=== PATIENT | male | born 1935 | race Caucasian/White ===

== ENCOUNTER 2016-07-25 07:54 | Outpatient (CLI) | payer MEDICARE, BC ==
[~2016-07-25 07:54] MED LIST: ASPI81TA2 PO; ATOR20TA PO; TAMS0.4C34 PO; amoxicillin PO
== END 2016-07-25 23:59 | disposition home or self-care (01) ==
LOC: RAD 07:54
PROVIDERS: ATTEND Internal Medicine Hematology & Oncology
DX: C90.00 Multiple myeloma not having achieved remission (principal); S22.43XD Multiple fractures of ribs, bilateral, subsequent encounter for fracture with routine healing; X58.XXXD Exposure to other specified factors, subsequent encounter; M47.819 Spondylosis without myelopathy or radiculopathy, site unspecified; M25.80 Other specified joint disorders, unspecified joint
CPT/HCPCS: 77075-TC

== ENCOUNTER 2016-11-29 11:51 | Inpatient (IN) | payer MEDICARE, BC ==
[~2016-11-29] VITALS: Ht 175.3 cm; Wt 74.8 kg
--- NOTE | 2016-11-29 11:51 | NUR ---
BIB C/O GENERALIZED WEAKNESS, DISCHARGED YESTERDAY FROM [facility] for SUBARACHNOID HEMMORHAGE. PT IS AAO X4, AMBULATORY WITH CANE. RR EVEN AND UNLABORED. ASHER. AT BEDSIDE FOR EVAL. PT PLACED ON MONITOR.
[2016-11-29 12:40] LABS: BASOPHILS % (AUTO) 0.2 % (0.0-2.0); EOSINOPHILS # (AUTO) 0.2 /CMM (0.0-0.7); EOSINOPHILS % (AUTO) 2.2 % (0.0-6.0); HEMATOCRIT 34 % (39-51); HEMOGLOBIN 11.2 g/dL (13.5-17.5); LYMPHOCYTES # (AUTO) 0.5 /CMM (0.8-4.8); MEAN CORPUSCULAR HEMOGLOBIN 32 PG (26.0-33.0); MEAN CORPUSCULAR HGB CONC 33 g/dl (31.0-36.0); MEAN CORPUSCULAR VOLUME 96 fL (80-96); NEUTROPHILS # (AUTO) 5.3 /CMM (1.8-8.9); NEUTROPHILS % (AUTO) 75.6 % (43.0-81.0); PLATELET COUNT (AUTO) 83 /CMM (150-450); RDW COEFFICIENT OF VARIATION 15.4 (11.5-15.0); RED BLOOD CELL COUNT(AUTO) 3.53 MIL/uL (4.5-6.0)
[2016-11-29 12:50] LABS: CALCIUM, SERUM 8.3 mg/dL (8.5-10.1); CARBON DIOXIDE 25 mmol/L (21-32); CHLORIDE 108 mmol/L (98-107); GLUCOSE 100 mg/dL (74-106); POTASSIUM 4.2 mmol/L (3.5-5.1); SODIUM SERUM 141 mmol/L (136-145); UREA NITROGEN, BLOOD 14 mg/dL (7-18)
[2016-11-29 12:53] LABS: INR 1.02 (0.87-1.13); PROTHROMBIN TIME 10.6 SECS (9.5-12.7)
[2016-11-29 12:57] LABS: TROPONIN I 0.155 ng/mL (0.00-0.056)
[2016-11-29 13:07] LABS: ALANINE AMINOTRANSFERASE 45 U/L (12-78); ALBUMIN 2.9 g/dL (3.4-5.0); ALKALINE PHOSPHATASE 69 U/L (46-116); ASPARTATE AMINOTRANSFERASE 33 U/L (15-37); BILIRUBIN,DIRECT 0.2 mg/dL (0.0-0.2); BILIRUBIN,TOTAL 0.9 mg/dL (0.2-1.0); TOTAL PROTEIN, SERUM 6.1 g/dL (6.4-8.2)
--- NOTE | 2016-11-29 13:21 | NUR ---
URINE OBTAINED SENT TO LAB
[2016-11-29 13:53] LABS: APPEARANCE,URINE Clear (CLEAR); BILIRUBIN,URINE Negative (NEGATIVE); BLOOD, URINE Negative Ery/uL (NEGATIVE); COLOR,URINE Light yellow (YELLOW); KETONES,URINE Negative (NEGATIVE); LEUKOCYTE ESTERASE ,URINE Negative (NEGATIVE); NITRITE, URINE Negative (NEGATIVE); PROTEIN,URINE Negative (NEGATIVE); UGLUCOSE Negative (NEGATIVE)
[2016-11-29 14:02] LABS: BACTERIA,URINE None seen /HPF (None Seen); RBC,URINE 0-3 /HPF (0-2); SQUAMOUS EPITHELIAL CELL,UR Few /HPF (None Seen); WBC,URINE 0-3 /HPF (0-3)
--- NOTE | 2016-11-29 14:09 | NUR ---
CALLED [facility] ANDONIAN
--- NOTE | 2016-11-29 14:30 | NUR ---
ROYAL 114-1
[2016-11-29] MEDS ORDERED: LENA15CA PO (14:32)
[2016-11-29] MEDS ORDERED: CYAN10009 PO (14:32)
[2016-11-29] MEDS ORDERED: CALC-866 PO (14:32)
[2016-11-29] MEDS ORDERED: LEVE500T20 PO (14:32)
[2016-11-29] MEDS ORDERED: ACYC400T PO (14:32)
--- NOTE | 2016-11-29 14:56 | NUR ---
REPORT GIVEN TO COSMO ARMENDARIZ FOR LISY
[2016-11-29] MEDS ORDERED: CALC-897 PO (14:58)
[2016-11-29 15:17] LABS: BAND % (MANUAL) 1 % (0.0-5.0); LYMPHOCYTES % (MANUAL) 12 % (16-48); MONOCYTES % (MANUAL) 9 % (0-11.0); NEUTROPHILS % (MANUAL) 78 (42-76)
--- NOTE | 2016-11-29 16:38 | NUR ---
PAUL SCALES HYPERION ANALYST AT BEDSIDE FOR EVAL
--- NOTE | 2016-11-29 19:05 | NUR ---
DRAW FRAME OPERATOR INITIAL NOTE PT RECEIVED FROM ER IN NO ACUTE DISTRESS. ON TELE WITH SR 68. A/O X4 ABLE TO WALK TO BED WITH ASSISTANCE. 18 G IV ON RIGHT HAND THAT IS PATENT AND WILL START IV FLUIDS SOON. FAMILY WILL BE COMING TO BEDSIDE ACCORDING TO THE PATIENT. SAFETY AND COMFORT MEASURES TO BE ENSURED DURING THE SHIFT.
--- NOTE | 2016-11-29 19:46 | NUR ---
TEXTED DR. TRUJILLO FOR MRI APPROVAL,
--- NOTE | 2016-11-29 19:52 | NUR ---
MRI APPROVED, MRI WILL BE TOMORROW AM 11/30/2016.
[2016-11-29 20:00] VITALS: BP 125/71
--- NOTE | 2016-11-29 21:06 | NUR ---
RN NOTE PT HAD ORDER FOR [address]. WHEN OUT OF THE ROOM PT FAMILY GAVE HIM HIS DOSE FROM HOME SUPPLY. SO WILL HOLD.
[2016-11-30] VITALS: BP 102/53
[2016-11-30 04:00] VITALS: BP 115/64
--- NOTE | 2016-11-30 05:07 | NUR ---
RN NOTE NEW BAG OF IV NS @75CC NOT GIVEN DUE TO FIRST BAG STILL RUNNING.
--- NOTE | 2016-11-30 05:47 | NUR ---
INSPECTOR CHIEF CLOSING NOTE PT REMAINS IN NO ACUTE DISTRESS. PT HAD ADEQUATE SLEEP DURING THE SHIFT. AWAKE CURRENTLY ON PHONE AND WAS ABLE OT GO TO THE RESTROOM NEEDED. COMFORT AND SAFETY MEASURES WERE ENSURED DURING THE SHIFT.
[2016-11-30 07:01] LABS: CARBON DIOXIDE 24 mmol/L (21-32); CHLORIDE 111 mmol/L (98-107); GLUCOSE 91 mg/dL (74-106); MAGNESIUM 1.9 mg/dL (1.8-2.4); PHOSPHORUS 3.6 mg/dL (2.5-4.9); POTASSIUM 4.1 mmol/L (3.5-5.1); SODIUM SERUM 146 mmol/L (136-145); UREA NITROGEN, BLOOD 13 mg/dL (7-18)
[2016-11-30 07:02] LABS: CHOLESTEROL 122 mg/dL (<200); HDL CHOLESTEROL 68 mg/dL (40-60); LDL 44 mg/dL (0-99); TRIGLYCERIDES 75 mg/dL (30-150)
[2016-11-30 07:06] LABS: BASOPHILS % (AUTO) 0.3 % (0.0-2.0); EOSINOPHILS # (AUTO) 0.3 /CMM (0.0-0.7); EOSINOPHILS % (AUTO) 4.5 % (0.0-6.0); HEMATOCRIT 33 % (39-51); HEMOGLOBIN 10.6 g/dL (13.5-17.5); LYMPHOCYTES # (AUTO) 0.6 /CMM (0.8-4.8); LYMPHOCYTES % (AUTO) 10.1 % (20.0-44.0); MEAN CORPUSCULAR HEMOGLOBIN 31 PG (26.0-33.0); MEAN CORPUSCULAR HGB CONC 32 g/dl (31.0-36.0); MEAN CORPUSCULAR VOLUME 98 fL (80-96); MONOCYTES % (AUTO) 17.9 % (2.0-12.0); NEUTROPHILS # (AUTO) 3.7 /CMM (1.8-8.9); NEUTROPHILS % (AUTO) 67.2 % (43.0-81.0); PLATELET COUNT (AUTO) 87 /CMM (150-450); RDW COEFFICIENT OF VARIATION 16.7 (11.5-15.0); RED BLOOD CELL COUNT(AUTO) 3.39 MIL/uL (4.5-6.0); WHITE BLOOD COUNT (AUTO) 5.6 K/uL (4.3-11.0)
[2016-11-30 08:00] VITALS: BP 127/69
--- NOTE | 2016-11-30 08:16 | NUR ---
FAMILY ASSISTANT NOTE PATIENT IN BED . ALL NEEDS ATTENDED ALERT , ORIENTED X4 NO SOB NOTED , SEEN BY DR MAIN RETINA SUBSPECIALIST NOTIFIED THAT TROPONIN 0.155 OK TO ORDER ONE MORE NOW , OK TO PLACE ON MED SURGE , ON TELE MONITOR SR HR 84 , AND HAS LT UPPER CHEST HEART MONITOR IN PLACE FROM [facility] DR MAIN NOTIFIED, RT HAND HL INTACT AND PATENT , BED IN LOWEST AND LOCKED POSITION , CALL LIGHT WITHIN REACH , PLAN OF CARE DISCUSSED WITH PATIENT ,UNDERSTOOD, , STROKE SCALE DONE , AND STROKE TEACHING DONE, DR GRAF AWARE OF CT HEAD WILL CONT TO MONITOR CLOSELY
--- NOTE | 2016-11-30 09:28 | NUR ---
GARDENING MANAGER NOTE TELE REMOVED ORDERED , MRI CONSENT DONE BUT UNABLE TO GET INFORMATION ABOUT HEART MONITOR ON HIS LT CHEST , LEFT A MESSAGE WITH WILL F\U
[2016-11-30 09:44] LABS: EOSINOPHILS % (MANUAL) 5 % (0-4); LYMPHOCYTES % (MANUAL) 7 % (16-48); MONOCYTES % (MANUAL) 13 % (0-11.0); NEUTROPHILS % (MANUAL) 75 (42-76)
--- NOTE | 2016-11-30 10:26 | NUR ---
MS RN NOTE DR BUNN AT BEDSIDE AN NOTIFIED THAT DR FROM [facility] WANT TO TRANSFER TO [facility] STATED THAT WILL F\U , SPOKE WITH STATED THAT WILL GET INFORMATION ABOUT
--- NOTE | 2016-11-30 11:04 | NUR ---
MS RN NOTES SEEN BY ONCOLOGIST VITA AND NEUROLOGIST DARLYN PENDING DISCHARGE TO DIFFERENT HOSPITAL. WAITING FROM FOR HEART MONITOR PAPER WORK.
--- NOTE | 2016-11-30 12:19 | NUR ---
MS RN NOTES SPOKE TO DR. Carpio OLEOMARGARINE MAKER NOTIFIED OF TROPONIN OF 0.509 AND WITH ORDERS TO REPEAT TROPONIN IN 6HRS. AND OK TO REMOVE HEART MONITOR FOR MRI HERE. Addendum: 11/30/16 at 1324 by ELOISA ALANIS RN BACK FROM MRI SPINE WILL F\U
--- NOTE | 2016-11-30 14:19 | NUR ---
MS ARMENDARIZ NOTE WITH PT , ABLE TO WALK WELL WITH STAND BY ASSISTANCE , BACK FROM MRI ,CHICHO Vilchis\U Addendum: 11/30/16 at 1457 by ELOISA ALANIS RN REPORTED TO DR COOK MRI RESULT NO NEW ORDER GIVEN AT THIS TIME
[2016-11-30 16:00] VITALS: BP 129/71
--- NOTE | 2016-11-30 18:57 | NUR ---
MS RN NOTES ALL NEEDS ATTENDED. TROPONIN LEVEL STILL PENDING. WILL ENDORSE TO NEXT SHIFT RN TO F/U.
--- NOTE | 2016-11-30 19:05 | NUR ---
RN OPENING NOTES RECEIVED REPORT FROM AM RN. PATIENT IN BED, A/A/O X3, ABLE TO MAKE NEEDS KNOWN. BREATHING EVEN AND UNLABORED, ON ROOM AIR. DENIES SOB OR DIFFICULTY BREATHING. PULSES PRESENT. RIGHT HAND IV PATENT W/ DRESSING CDI & IVF NS @ 75 ML/HR. DENIES ANY PAIN OR DISCOMFORT @ THIS TIME. SAFETY MEASURES IN PLACE W/ SIDE RAILS UP, BED LOCKED IN LOWEST POSITION, CALL LIGHT WITHIN REACH. FAMILY @ BEDSIDE. WILL CONTINUE TO MONITOR.
[2016-11-30 20:00] VITALS: BP 121/62
--- NOTE | 2016-11-30 20:00 | NUR ---
RN NOTES RIGHT HAND IV W/ LEAKING NOTED. LINE DC'D & REPLACED W/ IV #22 ON LEFT AC. PATIENT TOLERATED WELL.
[2016-11-30 20:14] VITALS: BP 121/62
--- NOTE | 2016-11-30 20:20 | NUR ---
RN NOTES CRITICALLY HIGH TROPONIN LEVEL REPORTED TO DR DUVAL. NO NEW ORDERS RECEIVED.
[2016-12-01 04:00] VITALS: BP 114/52
--- NOTE | 2016-12-01 07:05 | NUR ---
MS RN NOTE: RECEIVED PT AWAKE IN BED, A&OX3, DENIES PAIN. ON RA, RESPIRATIONS EVEN AND UNLABORED WITH NO SOB NOTED. LAC PATENT AND INTACT WITH NS RUNNING AT 75ML/HR. BED LOW, LOCKED, X2 SIDE RAILS UP AND CALL LIGHT WITHIN REACH. WILL CONT TO MONITOR.
[2016-12-01 07:35] LABS: EOSINOPHILS # (AUTO) 0.2 /CMM (0.0-0.7); EOSINOPHILS % (AUTO) 3.4 % (0.0-6.0); HEMATOCRIT 32 % (39-51); HEMOGLOBIN 10.5 g/dL (13.5-17.5); LYMPHOCYTES # (AUTO) 0.8 /CMM (0.8-4.8); LYMPHOCYTES % (AUTO) 13.7 % (20.0-44.0); MEAN CORPUSCULAR HEMOGLOBIN 32 PG (26.0-33.0); MEAN CORPUSCULAR HGB CONC 33 g/dl (31.0-36.0); MEAN CORPUSCULAR VOLUME 97 fL (80-96); MONOCYTES # (AUTO) 1.3 /CMM (0.1-1.30); MONOCYTES % (AUTO) 21.8 % (2.0-12.0); NEUTROPHILS # (AUTO) 3.7 /CMM (1.8-8.9); NEUTROPHILS % (AUTO) 61.1 % (43.0-81.0); PLATELET COUNT (AUTO) 95 /CMM (150-450); RDW COEFFICIENT OF VARIATION 16.9 (11.5-15.0); RED BLOOD CELL COUNT(AUTO) 3.27 MIL/uL (4.5-6.0)
[2016-12-01 08:00] VITALS: BP 127/62
[2016-12-01 08:02] LABS: CALCIUM, SERUM 7.5 mg/dL (8.5-10.1); CARBON DIOXIDE 23 mmol/L (21-32); CHLORIDE 107 mmol/L (98-107); CREATININE 0.9 mg/dL (0.6-1.3); GLUCOSE 100 mg/dL (74-106); MAGNESIUM 1.7 mg/dL (1.8-2.4); PHOSPHORUS 2.9 mg/dL (2.5-4.9); POTASSIUM 3.1 mmol/L (3.5-5.1); SODIUM SERUM 141 mmol/L (136-145); UREA NITROGEN, BLOOD 17 mg/dL (7-18)
[2016-12-01 08:46] LABS: BAND % (MANUAL) 1 % (0.0-5.0); EOSINOPHILS % (MANUAL) 1 % (0-4); LYMPHOCYTES % (MANUAL) 15 % (16-48); MONOCYTES % (MANUAL) 24 % (0-11.0); NEUTROPHILS % (MANUAL) 59 (42-76)
[2016-12-01] MEDS ORDERED: METO25TA20 PO (15:45)
[2016-12-01 16:00] VITALS: BP_SYST 116; BP_SYST 118; BP_DIAS 59
--- NOTE | 2016-12-01 17:20 | NUR ---
MS RN NOTE: PATIENT D/C BACK HOME IN STABLE CONDITION. VS: 116/59 BP, 98.4 TEMP, 65 HR, 20 RR, 94% O2SAT. DISCHARGE FORMS AND BELONGINGS LIST SIGNED. BELONGINGS RETURNED AND RX GIVEN. PICTURES TAKEN. ORDERS CARRIED OUT. PATIENT LEFT THE UNIT AT 1720 VIA WHEELCHAIR ACCOMPANIED BY RN AND .
== END 2016-12-01 17:25 | disposition home or self-care (01) | DRG 85 ==
LOC: ER 11:55 → TELE-TD 16:00 → TELE1 17:19 → MEDSG1 11-30 08:08
PROVIDERS: ADMIT Internal Medicine; ATTEND Internal Medicine
DX: S06.6X0A Traumatic subarachnoid hemorrhage without loss of consciousness, initial encounter (principal); I21.4 Non-ST elevation (NSTEMI) myocardial infarction; E43 Unspecified severe protein-calorie malnutrition; D69.59 Other secondary thrombocytopenia; C90.00 Multiple myeloma not having achieved remission; E88.09 Other disorders of plasma-protein metabolism, not elsewhere classified; E83.42 Hypomagnesemia; G62.9 Polyneuropathy, unspecified; G90.8 Other disorders of autonomic nervous system; E83.51 Hypocalcemia; D63.0 Anemia in neoplastic disease; W19.XXXA Unspecified fall, initial encounter; E78.5 Hyperlipidemia, unspecified; Z79.82 Long term (current) use of aspirin; M62.50 Muscle wasting and atrophy, not elsewhere classified, unspecified site; Z68.24 Body mass index [BMI] 24.0-24.9, adult; M50.323 Other cervical disc degeneration at C6-C7 level; Y93.9 Activity, unspecified; Y92.009 Unspecified place in unspecified non-institutional (private) residence as the place of occurrence of the external cause; T45.1X5A Adverse effect of antineoplastic and immunosuppressive drugs, initial encounter; N18.9 Chronic kidney disease, unspecified; E87.6 Hypokalemia; Z79.899 Other long term (current) drug therapy; I95.1 Orthostatic hypotension; F07.81 Postconcussional syndrome; Z85.820 Personal history of malignant melanoma of skin
CPT/HCPCS: 36415; 70450-TC; 71010-TC; 72125-TC; 72141-TC; 80048-TC; 80061-TC; 80076-TC; 81000-TC; 82384; 82533; 83735-TC; 83835; 84100-TC; 84443-TC; 84484-TC; 85025-TC; 85730-TC; 87081-TC; 93307-TC; 93880-TC; 97116-TC; 97530-TC; A4606; J0610; J3475; J7030; J7060; Z7610

== ENCOUNTER 2016-12-04 09:51 | Outpatient (CLI) | payer MEDICARE, BC ==
[~2016-12-04 09:51] MED LIST changes: -ASPI81TA2 PO; +CALC-897 PO; +CYAN10009 PO; +LEVE500T20 PO; +METO25TA20 PO; -amoxicillin PO
[2016-12-04 11:32] LABS: BASOPHILS % (AUTO) 0.1 % (0.0-2.0); EOSINOPHILS # (AUTO) 0.1 /CMM (0.0-0.7); EOSINOPHILS % (AUTO) 1.7 % (0.0-6.0); HEMATOCRIT 38 % (39-51); HEMOGLOBIN 12.3 g/dL (13.5-17.5); LYMPHOCYTES # (AUTO) 0.9 /CMM (0.8-4.8); LYMPHOCYTES % (AUTO) 16.4 % (20.0-44.0); MEAN CORPUSCULAR HEMOGLOBIN 31 PG (26.0-33.0); MEAN CORPUSCULAR HGB CONC 32 g/dl (31.0-36.0); MEAN CORPUSCULAR VOLUME 97 fL (80-96); MONOCYTES % (AUTO) 18.7 % (2.0-12.0); NEUTROPHILS # (AUTO) 3.4 /CMM (1.8-8.9); NEUTROPHILS % (AUTO) 63.1 % (43.0-81.0); PLATELET COUNT (AUTO) 173 /CMM (150-450); RDW COEFFICIENT OF VARIATION 16.9 (11.5-15.0); RED BLOOD CELL COUNT(AUTO) 3.92 MIL/uL (4.5-6.0); WHITE BLOOD COUNT (AUTO) 5.3 K/uL (4.3-11.0)
[2016-12-04 11:53] LABS: EOSINOPHILS % (MANUAL) 1 % (0-4); LYMPHOCYTES % (MANUAL) 21 % (16-48); MONOCYTES % (MANUAL) 16 % (0-11.0); NEUTROPHILS % (MANUAL) 62 (42-76)
[2016-12-04 12:05] LABS: ALANINE AMINOTRANSFERASE 58 U/L (12-78); ALBUMIN 3.4 g/dL (3.4-5.0); ALKALINE PHOSPHATASE 75 U/L (46-116); ASPARTATE AMINOTRANSFERASE 17 U/L (15-37); BILIRUBIN,TOTAL 1.1 mg/dL (0.2-1.0); CALCIUM, SERUM 8.8 mg/dL (8.5-10.1); CARBON DIOXIDE 29 mmol/L (21-32); CHLORIDE 107 mmol/L (98-107); CREATININE 1.2 mg/dL (0.6-1.3); GLUCOSE 93 mg/dL (74-106); POTASSIUM 3.7 mmol/L (3.5-5.1); SODIUM SERUM 142 mmol/L (136-145); TOTAL PROTEIN, SERUM 7.2 g/dL (6.4-8.2); UREA NITROGEN, BLOOD 22 mg/dL (7-18)
[2016-12-05 14:16] LABS: BETA-2 MICROGLOBULIN, SERUM 2.1 mg/L (0.6-2.4)
[2016-12-06 06:12] LABS: *IFE A/G RATIO 1.3 (0.7-1.7); *IFE ALBUMIN 3.7 g/dL (2.9-4.4); *IFE ALPHA-2-GLOBULIN 0.8 g/dL (0.4-1.0); *IFE BETA GLOBULIN 0.8 g/dL (0.7-1.3); *IFE M-SPIKE Not Observed g/dL (Not Observed); *IFEALPHA-1-GLOBULIN 0.3 g/dL (0.0-0.4); *SPE PROTEIN TOTAL 6.6 g/dL (6.0-8.5)
== END 2016-12-04 23:59 | disposition home or self-care (01) ==
LOC: LAB 09:51
PROVIDERS: ATTEND Internal Medicine Hematology & Oncology
DX: C44.319 Basal cell carcinoma of skin of other parts of face (principal); C90.00 Multiple myeloma not having achieved remission; C44.310 Basal cell carcinoma of skin of unspecified parts of face
CPT/HCPCS: 36415; 80053-TC; 82232; 85025-TC

== ENCOUNTER 2017-01-08 09:32 | Outpatient (CLI) | payer MEDICARE, BC | END 2017-01-08 23:59 | disposition home or self-care (01) | LOC: CT 09:32 | PROVIDERS: ATTEND Internal Medicine Hematology & Oncology | DX: C90.00 Multiple myeloma not having achieved remission (principal); I25.10 Atherosclerotic heart disease of native coronary artery without angina pectoris; I70.0 Atherosclerosis of aorta; R91.8 Other nonspecific abnormal finding of lung field; E27.9 Disorder of adrenal gland, unspecified; N28.89 Other specified disorders of kidney and ureter | CPT/HCPCS: 71250-TC; 76700-TC ==

== ENCOUNTER 2017-01-12 14:10 | Inpatient (IN) | payer MEDICARE, BC ==
[~2017-01-12] VITALS: Ht 175.3 cm; Wt 70.8 kg
[2017-01-12 14:48] LABS: BASOPHILS % (AUTO) 0.1 % (0.0-2.0); EOSINOPHILS % (AUTO) 0.2 % (0.0-6.0); HEMATOCRIT 37 % (39-51); HEMOGLOBIN 12.4 g/dL (13.5-17.5); LYMPHOCYTES # (AUTO) 0.6 /CMM (0.8-4.8); LYMPHOCYTES % (AUTO) 5.1 % (20.0-44.0); MEAN CORPUSCULAR HEMOGLOBIN 31 PG (26.0-33.0); MEAN CORPUSCULAR HGB CONC 33 g/dl (31.0-36.0); MEAN CORPUSCULAR VOLUME 94 fL (80-96); NEUTROPHILS # (AUTO) 10.6 /CMM (1.8-8.9); NEUTROPHILS % (AUTO) 86.6 % (43.0-81.0); PLATELET COUNT (AUTO) 71 /CMM (150-450); RDW COEFFICIENT OF VARIATION 13.7 (11.5-15.0); RED BLOOD CELL COUNT(AUTO) 3.97 MIL/uL (4.5-6.0); WHITE BLOOD COUNT (AUTO) 12.2 K/uL (4.3-11.0)
[2017-01-12 15:00] LABS: CARBON DIOXIDE 31 mmol/L (21-32); CHLORIDE 103 mmol/L (98-107); CREATININE 1.3 mg/dL (0.6-1.3); GLUCOSE 101 mg/dL (74-106); POTASSIUM 3.7 mmol/L (3.5-5.1); SODIUM SERUM 138 mmol/L (136-145); UREA NITROGEN, BLOOD 27 mg/dL (7-18)
[2017-01-12] MEDS ORDERED: IV NS 0.9% 1,000 ML BAG IV ONE (15:00)
[2017-01-12 15:04] LABS: ALANINE AMINOTRANSFERASE 25 U/L (12-78); ALKALINE PHOSPHATASE 68 U/L (46-116); ASPARTATE AMINOTRANSFERASE 13 U/L (15-37); BILIRUBIN,DIRECT 0.2 mg/dL (0.0-0.2); BILIRUBIN,TOTAL 0.7 mg/dL (0.2-1.0); TOTAL PROTEIN, SERUM 6.5 g/dL (6.4-8.2)
[2017-01-12 15:10] LABS: TROPONIN I < 0.017 ng/mL (0.00-0.056)
[2017-01-12 15:53] LABS: APPEARANCE,URINE CLEAR (CLEAR); BILIRUBIN,URINE NEGATIVE (NEGATIVE); BLOOD, URINE NEGATIVE Ery/uL (NEGATIVE); COLOR,URINE YELLOW (YELLOW); KETONES,URINE NEGATIVE (NEGATIVE); LEUKOCYTE ESTERASE ,URINE NEGATIVE (NEGATIVE); NITRITE, URINE NEGATIVE (NEGATIVE); PH,URINE 6.5 (5.0-8.0); PROTEIN,URINE NEGATIVE (NEGATIVE); UGLUCOSE NEGATIVE (NEGATIVE); UROBILINOGEN,URINE 0.2 EU/dL (0.2)
[2017-01-12] MEDS ORDERED: ATOR10TA PO (16:01)
[2017-01-12] MEDS ORDERED: ASPI-991 PO (16:01)
[2017-01-12] MEDS ORDERED: LENA10CA PO (16:01)
[2017-01-12] MEDS ORDERED: DEXA4TAB PO (16:04)
[2017-01-12] MEDS ORDERED: IXAZ4CAP PO (16:04)
[2017-01-12 16:30] VITALS: BP 134/71
[2017-01-12 16:36] LABS: NEUTROPHILS % (MANUAL) 81 (42-76)
[2017-01-12 16:37] LABS: BAND % (MANUAL) 3 % (0.0-5.0); LYMPHOCYTES % (MANUAL) 7 % (16-48); MONOCYTES % (MANUAL) 9 % (0-11.0)
[2017-01-12] MEDS ORDERED: MAGNESIUM HYDROXIDE 30 ML UDC PO PRN (17:00)
[2017-01-12] MEDS ORDERED: ACETAMINOPHEN 325 MG TABLET PO PRN (17:00)
[2017-01-12] MEDS ORDERED: ONDANSETRON HCL/PF 4 MG/2 ML VIAL IVP PRN (17:00)
[2017-01-12] MEDS ORDERED: HYDROCODONE/APAP 5/325MG 1 EACH TABLET PO PRN (17:00)
[2017-01-12] MEDS ORDERED: ENOXAPARIN SODIUM 30 MG/0.3 ML DISP.SYRIN SQ SCH (17:00)
[2017-01-12] MEDS ORDERED: MAG HYDROX/AL HYDROX/SIMETH 30 ML UDC PO PRN (17:00)
[2017-01-12] MEDS ORDERED: Z GUARD REMEDY 2 OZ OINT TP PRN (17:00)
[2017-01-12] MEDS: CALCIUM CARB 600MG /VIT D 1 EACH TABLET PO SCH (17:50)
[2017-01-12 20:00] VITALS: BP 127/66
[2017-01-12 20:12] VITALS: BP 127/66
[2017-01-12 20:15] VITALS: BP 125/71
[2017-01-12] MEDS ORDERED: ZOLPIDEM TARTRATE 5 MG TABLET PO PRN (22:00)
[2017-01-13] VITALS (8 sets, daily range): BP systolic 103–137; BP diastolic 51–66
[2017-01-13] MEDS: IV NS 0.9% 1,000 ML IV PRN ×2 (00:01→17:07)
[2017-01-13 07:43] LABS: BASOPHILS % (AUTO) 0.5 % (0.0-2.0); EOSINOPHILS # (AUTO) 0.1 /CMM (0.0-0.7); EOSINOPHILS % (AUTO) 0.9 % (0.0-6.0); HEMATOCRIT 38 % (39-51); HEMOGLOBIN 12.3 g/dL (13.5-17.5); LYMPHOCYTES # (AUTO) 0.8 /CMM (0.8-4.8); LYMPHOCYTES % (AUTO) 8.3 % (20.0-44.0); MEAN CORPUSCULAR HEMOGLOBIN 31 PG (26.0-33.0); MEAN CORPUSCULAR HGB CONC 33 g/dl (31.0-36.0); MEAN CORPUSCULAR VOLUME 95 fL (80-96); MONOCYTES # (AUTO) 0.8 /CMM (0.1-1.30); MONOCYTES % (AUTO) 9.2 % (2.0-12.0); NEUTROPHILS # (AUTO) 7.4 /CMM (1.8-8.9); NEUTROPHILS % (AUTO) 81.1 % (43.0-81.0); PLATELET COUNT (AUTO) 59 /CMM (150-450); RED BLOOD CELL COUNT(AUTO) 3.97 MIL/uL (4.5-6.0); WHITE BLOOD COUNT (AUTO) 9.1 K/uL (4.3-11.0)
[2017-01-13 07:56] LABS: CALCIUM, SERUM 8.2 mg/dL (8.5-10.1); CARBON DIOXIDE 26 mmol/L (21-32); CHLORIDE 106 mmol/L (98-107); CREATININE 0.9 mg/dL (0.6-1.3); GLUCOSE 90 mg/dL (74-106); PHOSPHORUS 2.5 mg/dL (2.5-4.9); POTASSIUM 3.6 mmol/L (3.5-5.1); SODIUM SERUM 141 mmol/L (136-145); UREA NITROGEN, BLOOD 17 mg/dL (7-18)
[2017-01-13] MEDS: ATORVASTATIN 10 MG TABLET PO SCH (08:09)
[2017-01-13] MEDS: CALCIUM CARB 600MG /VIT D 1 EACH TABLET PO SCH ×2 (08:09→17:06)
[2017-01-13] MEDS: TAMSULOSIN 0.4 MG CAP.SR.24H PO SCH (08:09)
[2017-01-13] MEDS ORDERED: ASPIRIN EC 81 MG TABLET.DR PO SCH (09:00)
[2017-01-13 09:24] LABS: EOSINOPHILS % (MANUAL) 1 % (0-4); LYMPHOCYTES % (MANUAL) 10 % (16-48); MONOCYTES % (MANUAL) 10 % (0-11.0); NEUTROPHILS % (MANUAL) 79 (42-76)
[2017-01-14] MEDS: IV NS 0.9% 1,000 ML IV PRN ×2 (04:57→20:57)
[2017-01-14 07:00] VITALS: BP 124/71
[2017-01-14 07:05] VITALS: BP 111/68
[2017-01-14 07:10] VITALS: BP 82/48
[2017-01-14 07:11] LABS: THYROID STIMULATING HORMONE 0.536 uIU/mL (0.358-3.74)
[2017-01-14 07:17] LABS: INR 1.03 (0.87-1.13); PROTHROMBIN TIME 10.7 SECS (9.5-12.7)
[2017-01-14 08:00] VITALS: BP 124/71
[2017-01-14] MEDS: CALCIUM CARB 600MG /VIT D 1 EACH TABLET PO SCH ×2 (08:37→16:27)
[2017-01-14] MEDS: ATORVASTATIN 10 MG TABLET PO SCH (08:37)
[2017-01-14] MEDS: TAMSULOSIN 0.4 MG CAP.SR.24H PO SCH (08:37)
[2017-01-14 16:00] VITALS: BP 125/68
[2017-01-14 20:00] VITALS: BP 117/61
[2017-01-15 06:00] VITALS: BP 112/59
[2017-01-15 08:00] VITALS: BP 112/59
[2017-01-15] MEDS: TAMSULOSIN 0.4 MG CAP.SR.24H PO SCH (08:32)
[2017-01-15] MEDS: ATORVASTATIN 10 MG TABLET PO SCH (08:32)
[2017-01-15] MEDS: CALCIUM CARB 600MG /VIT D 1 EACH TABLET PO SCH ×2 (08:35→17:03)
[2017-01-15 10:29] LABS: EOSINOPHILS # (AUTO) 0.1 /CMM (0.0-0.7); EOSINOPHILS % (AUTO) 1.3 % (0.0-6.0); HEMATOCRIT 38 % (39-51); HEMOGLOBIN 12.3 g/dL (13.5-17.5); LYMPHOCYTES # (AUTO) 0.5 /CMM (0.8-4.8); LYMPHOCYTES % (AUTO) 5.7 % (20.0-44.0); MEAN CORPUSCULAR HEMOGLOBIN 31 PG (26.0-33.0); MEAN CORPUSCULAR HGB CONC 33 g/dl (31.0-36.0); MEAN CORPUSCULAR VOLUME 95 fL (80-96); MONOCYTES % (AUTO) 10.3 % (2.0-12.0); NEUTROPHILS # (AUTO) 7.7 /CMM (1.8-8.9); NEUTROPHILS % (AUTO) 82.7 % (43.0-81.0); PLATELET COUNT (AUTO) 73 /CMM (150-450); RDW COEFFICIENT OF VARIATION 14.9 (11.5-15.0); RED BLOOD CELL COUNT(AUTO) 3.97 MIL/uL (4.5-6.0); WHITE BLOOD COUNT (AUTO) 9.3 K/uL (4.3-11.0)
[2017-01-15] MEDS ORDERED: LIDOCAINE 0.5% HCL 50 ML VIAL ONE (10:43)
[2017-01-15] MEDS ORDERED: LIDOCAINE 2% 50 ML MDV IJ ONE (10:44)
[2017-01-15] MEDS ORDERED: LIDOCAINE HCL/PF 1% 30 ML SDV ONE (10:45)
[2017-01-15 11:02] LABS: CARBON DIOXIDE 25 mmol/L (21-32); CHLORIDE 108 mmol/L (98-107); CREATININE 0.9 mg/dL (0.6-1.3); GLUCOSE 99 mg/dL (74-106); POTASSIUM 3.5 mmol/L (3.5-5.1); SODIUM SERUM 141 mmol/L (136-145); UREA NITROGEN, BLOOD 16 mg/dL (7-18)
[2017-01-15 12:18] LABS: BAND % (MANUAL) 1 % (0.0-5.0); LYMPHOCYTES % (MANUAL) 2 % (16-48); MONOCYTES % (MANUAL) 6 % (0-11.0); NEUTROPHILS % (MANUAL) 91 (42-76)
[2017-01-15 16:00] VITALS: BP 123/64
[2017-01-15] MEDS: IV NS 0.9% 1,000 ML IV PRN (17:13)
[2017-01-15] MEDS ORDERED: ENOXAPARIN SODIUM 40 MG/0.4 ML DISP.SYRIN SQ SCH (20:00)
[2017-01-15 20:58] VITALS: BP 126/64
[2017-01-16 06:31] LABS: EOSINOPHILS # (AUTO) 0.1 /CMM (0.0-0.7); EOSINOPHILS % (AUTO) 1.2 % (0.0-6.0); HEMATOCRIT 35 % (39-51); HEMOGLOBIN 11.5 g/dL (13.5-17.5); LYMPHOCYTES # (AUTO) 0.7 /CMM (0.8-4.8); LYMPHOCYTES % (AUTO) 9.6 % (20.0-44.0); MEAN CORPUSCULAR HEMOGLOBIN 32 PG (26.0-33.0); MEAN CORPUSCULAR HGB CONC 33 g/dl (31.0-36.0); MEAN CORPUSCULAR VOLUME 95 fL (80-96); MONOCYTES # (AUTO) 0.8 /CMM (0.1-1.30); MONOCYTES % (AUTO) 10.8 % (2.0-12.0); NEUTROPHILS # (AUTO) 5.8 /CMM (1.8-8.9); NEUTROPHILS % (AUTO) 78.4 % (43.0-81.0); RDW COEFFICIENT OF VARIATION 14.6 (11.5-15.0); RED BLOOD CELL COUNT(AUTO) 3.66 MIL/uL (4.5-6.0); WHITE BLOOD COUNT (AUTO) 7.4 K/uL (4.3-11.0)
[2017-01-16 06:50] LABS: PLATELET COUNT (AUTO) 76 /CMM (150-450)
[2017-01-16 07:01] LABS: CALCIUM, SERUM 7.7 mg/dL (8.5-10.1); CARBON DIOXIDE 23 mmol/L (21-32); CHLORIDE 104 mmol/L (98-107); CREATININE 0.9 mg/dL (0.6-1.3); GLUCOSE 86 mg/dL (74-106); MAGNESIUM 2.2 mg/dL (1.8-2.4); PHOSPHORUS 2.1 mg/dL (2.5-4.9); POTASSIUM 3.1 mmol/L (3.5-5.1); SODIUM SERUM 137 mmol/L (136-145); UREA NITROGEN, BLOOD 17 mg/dL (7-18)
[2017-01-16 08:00] VITALS: BP 121/66
[2017-01-16] MEDS ORDERED: FERROUS SULFATE (325 MG) 325 MG/TAB TABLET PO SCH (09:00)
[2017-01-16] MEDS: TAMSULOSIN 0.4 MG CAP.SR.24H PO SCH (09:24)
[2017-01-16] MEDS: CALCIUM CARB 600MG /VIT D 1 EACH TABLET PO SCH (09:24)
[2017-01-16] MEDS: ATORVASTATIN 10 MG TABLET PO SCH (09:24)
[2017-01-16] MEDS: POTASSIUM CHLORIDE 20 MEQ TAB.PRT.SR PO SCH ×2 (11:58→13:12)
[2017-01-16] MEDS ORDERED: DEXAMETHASONE 4 MG TABLET PO SCH (17:00)
== END 2017-01-16 14:45 | DRG 73 ==
LOC: ER 14:12 → TELE 16:01 → MED 01-13 11:14
PROVIDERS: ADMIT Internal Medicine; ATTEND Internal Medicine
DX: G90.8 Other disorders of autonomic nervous system (principal); E43 Unspecified severe protein-calorie malnutrition; G92 Toxic encephalopathy; E88.09 Other disorders of plasma-protein metabolism, not elsewhere classified; D69.59 Other secondary thrombocytopenia; R65.10 Systemic inflammatory response syndrome (SIRS) of non-infectious origin without acute organ dysfunction; D63.8 Anemia in other chronic diseases classified elsewhere; C90.01 Multiple myeloma in remission; F03.90 Unspecified dementia, unspecified severity, without behavioral disturbance, psychotic disturbance, mood disturbance, and anxiety; I25.10 Atherosclerotic heart disease of native coronary artery without angina pectoris; I25.2 Old myocardial infarction; D72.829 Elevated white blood cell count, unspecified; E27.9 Disorder of adrenal gland, unspecified; E78.5 Hyperlipidemia, unspecified; Z79.82 Long term (current) use of aspirin; Z87.442 Personal history of urinary calculi; M62.50 Muscle wasting and atrophy, not elsewhere classified, unspecified site; Z68.23 Body mass index [BMI] 23.0-23.9, adult; T38.0X5A Adverse effect of glucocorticoids and synthetic analogues, initial encounter; Y92.009 Unspecified place in unspecified non-institutional (private) residence as the place of occurrence of the external cause; D50.9 Iron deficiency anemia, unspecified; L98.8 Other specified disorders of the skin and subcutaneous tissue; R29.6 Repeated falls
CPT/HCPCS: 36415; 70450-TC; 71010-TC; 76942-TC; 80048-TC; 80076-TC; 81000-TC; 82330; 82533; 82728-TC; 82746; 82962-TC; 83540-TC; 83735-TC; 83835; 84100-TC; 84443-TC; 84484-TC; 85025-TC; 85610-TC; 85730-TC; 87040-TC; 87081-TC; 87086-TC; 88305-TC; 88342; 97116-TC; 97530-TC; A4606; J1650; J3490; J7030; Z7610

== ENCOUNTER 2017-02-05 11:18 | Emergency (ER) | payer MEDICARE, BC ==
[~2017-02-05] VITALS: Ht 177.8 cm; Wt 72.6 kg
[~2017-02-05 11:18] MED LIST changes: +ASPI-991 PO; +ATOR10TA PO; -ATOR20TA PO; -CYAN10009 PO; +DEXA4TAB PO; +IXAZ4CAP PO; +LENA10CA PO; -LEVE500T20 PO; -METO25TA20 PO
--- NOTE | 2017-02-05 11:40 | NUR ---
PT PRESENTS TO ER S/P PRESYNCOPAL EPISODE WHILE STANDING UP FROM THE KITCHEN TABLE HE GOT "WOOZY AND WEAK" AND SLOWLY LOWERED HIMSELF TO THE GROUND. DENIES KO OR HEAD TRAUMA. DENIES PAIN. RESP EVEN UNLABORED. SKIN WARM NONDIAPHORETIC. CAREGIVER AT BEDSIDE REPORTS THAT THIS IS AN ONGOING ISSUE. IN ER BED 01.
[2017-02-05 11:55] LABS: BASOPHILS % (AUTO) 0.3 % (0.0-2.0); EOSINOPHILS % (AUTO) 0.7 % (0.0-6.0); HEMATOCRIT 39 % (39-51); HEMOGLOBIN 12.6 g/dL (13.5-17.5); LYMPHOCYTES # (AUTO) 0.2 /CMM (0.8-4.8); LYMPHOCYTES % (AUTO) 3.3 % (20.0-44.0); MEAN CORPUSCULAR HEMOGLOBIN 30 PG (26.0-33.0); MEAN CORPUSCULAR HGB CONC 33 g/dl (31.0-36.0); MEAN CORPUSCULAR VOLUME 92 fL (80-96); MONOCYTES % (AUTO) 15.3 % (2.0-12.0); NEUTROPHILS # (AUTO) 5.6 /CMM (1.8-8.9); NEUTROPHILS % (AUTO) 80.4 % (43.0-81.0); PLATELET COUNT (AUTO) 147 /CMM (150-450); RDW COEFFICIENT OF VARIATION 13.8 (11.5-15.0); RED BLOOD CELL COUNT(AUTO) 4.19 MIL/uL (4.5-6.0); WHITE BLOOD COUNT (AUTO) 6.8 K/uL (4.3-11.0)
[2017-02-05 12:05] LABS: CALCIUM, SERUM 9.2 mg/dL (8.5-10.1); CARBON DIOXIDE 27 mmol/L (21-32); CHLORIDE 103 mmol/L (98-107); CREATININE 1.2 mg/dL (0.6-1.3); GLUCOSE 105 mg/dL (74-106); POTASSIUM 3.6 mmol/L (3.5-5.1); SODIUM SERUM 138 mmol/L (136-145); UREA NITROGEN, BLOOD 26 mg/dL (7-18)
[2017-02-05 12:08] LABS: INR 0.96 (0.87-1.13)
[2017-02-05 12:10] LABS: ALANINE AMINOTRANSFERASE 31 U/L (12-78); ALBUMIN 2.9 g/dL (3.4-5.0); ALKALINE PHOSPHATASE 70 U/L (46-116); ASPARTATE AMINOTRANSFERASE 16 U/L (15-37); BILIRUBIN,DIRECT 0.2 mg/dL (0.0-0.2); BILIRUBIN,TOTAL 0.8 mg/dL (0.2-1.0); TOTAL PROTEIN, SERUM 6.4 g/dL (6.4-8.2)
[2017-02-05 12:12] LABS: TROPONIN I < 0.017 ng/mL (0.00-0.056)
--- NOTE | 2017-02-05 12:34 | NUR ---
CALLED DR GORMAN, ON THE PHONE WITH DR WILLIAM.
[2017-02-05 12:45] VITALS: BP 124/71
--- NOTE | 2017-02-05 12:47 | NUR ---
Patient discharged to home in stable condition. Written and verbal after care instructions given. Patient and patient's verbalizes understanding of instruction. Left in stable condition. Assisted via wheelchair to patient's car.
== END 2017-02-05 12:50 | disposition home or self-care (01) ==
LOC: ER 11:21
DX: R53.1 Weakness (principal); E78.00 Pure hypercholesterolemia, unspecified; Z87.442 Personal history of urinary calculi; Z88.5 Allergy status to narcotic agent; Z79.82 Long term (current) use of aspirin; W18.39XA Other fall on same level, initial encounter; Y93.89 Activity, other specified; Y92.89 Other specified places as the place of occurrence of the external cause; Y99.8 Other external cause status
CPT/HCPCS: 36415; 71010-TC; 80048-TC; 80076-TC; 84484-TC; 85025-TC; 85730-TC; A4606; Z7610

== ENCOUNTER 2017-02-09 08:36 | Outpatient (CLI) | payer MEDICARE, BC ==
[2017-02-09] MEDS ORDERED: GADOVERSETAMIDE 2.5 MMOL/5 ML VIAL IJ ONE (08:37)
== END 2017-02-10 23:59 | disposition home or self-care (01) ==
LOC: MRI 08:36
PROVIDERS: ATTEND Internal Medicine Hematology & Oncology
DX: I67.82 Cerebral ischemia (principal); G31.89 Other specified degenerative diseases of nervous system; C90.02 Multiple myeloma in relapse
CPT/HCPCS: 70553; A9579

== ENCOUNTER 2017-05-27 13:00 | Emergency (ER) | payer MEDICARE, BC ==
[~2017-05-27] VITALS: Ht 167.6 cm; Wt 74.8 kg
[~2017-05-27 13:00] MED LIST changes: +ASPI-1152 PO; -ASPI-991 PO
--- NOTE | 2017-05-27 13:07 | NUR ---
AAOX3, BB FAMILY FOR S/P TRIPPED AND FALL 1 HR AGO, FOREHEAD LAC, NO KO AMBULATES TO ER BED 12 USING HIS CANE. RR IS EVEN AND UNLABORED WITH NAD NOTED. SKIN IS WARM AND DRY. AWAITING MD FOR EVAL.
[2017-05-27] MEDS ORDERED: TDAP [DIPH/PERTUSSIS/TET] 0.5 ML VIAL IM ONE ×2 (13:14→13:30)
--- NOTE | 2017-05-27 13:25 | NUR ---
PT TO RADIOLOGY FOR HEAD CT SCAN VIA [facility].
--- NOTE | 2017-05-27 13:58 | NUR ---
BRONSON GARCÍA AT BEDSIDE FOR LACERATION REPAIR.
--- NOTE | 2017-05-27 14:10 | NUR ---
LAC REPAIR DONE. 5 SUTURES NOTED. WOUND CARE PROVIDED.
--- NOTE | 2017-05-27 14:33 | NUR ---
Patient discharged to home in stable condition. Written and verbal after care instructions given. Patient verbalizes understanding of instruction.
[2017-05-27 14:34] VITALS: BP 125/66
[2017-09-01] MEDS ORDERED: MIDO2.5T PO (11:01)
== END 2017-05-27 14:34 | disposition home or self-care (01) ==
LOC: ER 13:02
DX: S01.112A Laceration without foreign body of left eyelid and periocular area, initial encounter (principal); S01.81XA Laceration without foreign body of other part of head, initial encounter; E78.00 Pure hypercholesterolemia, unspecified; Z87.442 Personal history of urinary calculi; Z88.5 Allergy status to narcotic agent; Z79.82 Long term (current) use of aspirin; W01.190A Fall on same level from slipping, tripping and stumbling with subsequent striking against furniture, initial encounter; Y93.89 Activity, other specified; Y92.89 Other specified places as the place of occurrence of the external cause; Y99.8 Other external cause status
CPT/HCPCS: 70450-TC; 90715; A4606; A6402; Z7610

== ENCOUNTER 2017-06-18 10:05 | Outpatient (CLI) | payer MEDICARE, BC ==
[2017-09-01] MEDS ORDERED: MIDO2.5T PO (11:01)
== END 2017-06-18 23:59 | disposition home or self-care (01) ==
LOC: RAD 10:05
PROVIDERS: ATTEND Internal Medicine Hematology & Oncology
DX: C90.01 Multiple myeloma in remission (principal); M95.4 Acquired deformity of chest and rib; M41.84 Other forms of scoliosis, thoracic region
CPT/HCPCS: 77075-TC

== ENCOUNTER 2017-08-31 09:47 | Inpatient (IN) | payer MEDICARE, BC ==
[~2017-08-31] VITALS: Ht 175.3 cm; Wt 70.3 kg
[2017-08-31 10:28] LABS: CALCIUM, SERUM 8.7 mg/dL (8.5-10.1); CARBON DIOXIDE 25 mmol/L (21-32); CHLORIDE 106 mmol/L (98-107); CREATININE 1.1 mg/dL (0.6-1.3); GLUCOSE 113 mg/dL (74-106); INR 0.96 (0.85-1.15); POTASSIUM 3.9 mmol/L (3.5-5.1); SODIUM SERUM 138 mmol/L (136-145); UREA NITROGEN, BLOOD 21 mg/dL (7-18)
[2017-08-31] MEDS ORDERED: IV NS 0.9% 1,000 ML BAG IV ONE (10:30)
[2017-08-31 10:34] LABS: ALANINE AMINOTRANSFERASE 32 U/L (12-78); ALBUMIN 2.8 g/dL (3.4-5.0); ALKALINE PHOSPHATASE 81 U/L (46-116); ASPARTATE AMINOTRANSFERASE 11 U/L (15-37); BILIRUBIN,DIRECT 0.3 mg/dL (0.0-0.2); BILIRUBIN,TOTAL 1.3 mg/dL (0.2-1.0); TOTAL PROTEIN, SERUM 5.9 g/dL (6.4-8.2)
[2017-08-31 10:36] LABS: TROPONIN I < 0.017 ng/mL (0.00-0.056)
[2017-08-31 10:37] LABS: BASOPHILS % (AUTO) 0.3 % (0.0-2.0); MEAN CORPUSCULAR VOLUME 94 fL (80-96); MONOCYTES # (AUTO) 1.6 /CMM (0.1-1.30); NEUTROPHILS # (AUTO) 4.4 /CMM (1.8-8.9)
[2017-08-31 10:39] LABS: EOSINOPHILS % (AUTO) 1.4 % (0.0-6.0); HEMATOCRIT 33 % (39-51); HEMOGLOBIN 11.2 g/dL (13.5-17.5); LYMPHOCYTES # (AUTO) 0.5 /CMM (0.8-4.8); LYMPHOCYTES % (AUTO) 7.1 % (20.0-44.0); MEAN CORPUSCULAR HEMOGLOBIN 33 PG (26.0-33.0); MEAN CORPUSCULAR HGB CONC 35 g/dl (31.0-36.0); MONOCYTES % (AUTO) 24.2 % (2.0-12.0); PLATELET COUNT (AUTO) 152 /CMM (150-450); RDW COEFFICIENT OF VARIATION 14.9 (11.5-15.0); RED BLOOD CELL COUNT(AUTO) 3.45 MIL/uL (4.5-6.0); WHITE BLOOD COUNT (AUTO) 6.6 K/uL (4.3-11.0)
[2017-08-31] MEDS ORDERED: DUTA0.5C15 PO (11:25)
[2017-08-31] MEDS ORDERED: POMA4CAP PO (11:25)
[2017-08-31] MEDS ORDERED: ACETAMINOPHEN 325 MG TABLET PO PRN (12:30)
[2017-08-31] MEDS ORDERED: MAGNESIUM HYDROXIDE 30 ML UDC PO PRN (12:30)
[2017-08-31] MEDS ORDERED: ZOLPIDEM TARTRATE 5 MG TABLET PO PRN (12:30)
[2017-08-31] MEDS ORDERED: ONDANSETRON HCL/PF 4 MG/2 ML VIAL IVP PRN (12:30)
[2017-08-31] MEDS ORDERED: HYDROCODONE/APAP 5/325MG 1 EACH TABLET PO PRN (12:30)
[2017-08-31] MEDS ORDERED: Z GUARD REMEDY 2 OZ OINT TP PRN (12:30)
[2017-08-31 13:37] VITALS: BP 124/69
[2017-08-31 13:38] VITALS: BP_SYST 111; BP_SYST 133; BP_SYST 142; BP_DIAS 61; BP_DIAS 72; BP_DIAS 75
[2017-08-31] MEDS: IV NS 0.9% 1,000 ML IV PRN (14:25)
[2017-08-31 16:00] VITALS: BP 129/71
[2017-08-31 20:00] VITALS: BP 148/76
[2017-09-01] VITALS: BP 139/68
[2017-09-01 04:00] VITALS: BP 126/67
[2017-09-01] MEDS: IV NS 0.9% 1,000 ML IV PRN (05:56)
[2017-09-01 06:00] VITALS: BP_SYST 107; BP_SYST 136; BP_SYST 89; BP_DIAS 51; BP_DIAS 62; BP_DIAS 81
[2017-09-01 06:56] LABS: EOSINOPHILS % (AUTO) 2.5 % (0.0-6.0); HEMATOCRIT 34 % (39-51); HEMOGLOBIN 10.9 g/dL (13.5-17.5); LYMPHOCYTES % (AUTO) 14.8 % (20.0-44.0); MEAN CORPUSCULAR HEMOGLOBIN 31 PG (26.0-33.0); MEAN CORPUSCULAR HGB CONC 32 g/dl (31.0-36.0); MEAN CORPUSCULAR VOLUME 97 fL (80-96); MONOCYTES # (AUTO) 1.6 /CMM (0.1-1.30); NEUTROPHILS # (AUTO) 3.8 /CMM (1.8-8.9); NEUTROPHILS % (AUTO) 58.7 % (43.0-81.0); PLATELET COUNT (AUTO) 152 /CMM (150-450); RDW COEFFICIENT OF VARIATION 15.9 (11.5-15.0); RED BLOOD CELL COUNT(AUTO) 3.49 MIL/uL (4.5-6.0); WHITE BLOOD COUNT (AUTO) 6.5 K/uL (4.3-11.0)
[2017-09-01 07:09] LABS: CHOLESTEROL 112 mg/dL (<200); HDL CHOLESTEROL 62 mg/dL (40-60); LDL 45 mg/dL (0-99); TRIGLYCERIDES 80 mg/dL (30-150)
[2017-09-01 07:13] LABS: CALCIUM, SERUM 7.9 mg/dL (8.5-10.1); CARBON DIOXIDE 23 mmol/L (21-32); CHLORIDE 109 mmol/L (98-107); CREATININE 0.8 mg/dL (0.6-1.3); GLUCOSE 88 mg/dL (74-106); MAGNESIUM 2.1 mg/dL (1.8-2.4); PHOSPHORUS 2.6 mg/dL (2.5-4.9); POTASSIUM 3.7 mmol/L (3.5-5.1); SODIUM SERUM 139 mmol/L (136-145); UREA NITROGEN, BLOOD 15 mg/dL (7-18)
[2017-09-01 07:19] LABS: THYROID STIMULATING HORMONE 1.861 uIU/mL (0.358-3.74)
[2017-09-01 08:00] VITALS: BP 142/77
[2017-09-01 08:29] LABS: EOSINOPHILS % (MANUAL) 3 % (0-4); LYMPHOCYTES % (MANUAL) 15 % (16-48); MONOCYTES % (MANUAL) 18 % (0-11.0); NEUTROPHILS % (MANUAL) 64 (42-76)
[2017-09-01] MEDS ORDERED: CALCIUM CARB 600MG /VIT D 1 EACH TABLET PO SCH (09:00)
[2017-09-01] MEDS ORDERED: ASPIRIN EC 81 MG TABLET.DR PO SCH (09:00)
[2017-09-01] MEDS ORDERED: ATORVASTATIN 10 MG TABLET PO SCH (09:00)
[2017-09-01] MEDS ORDERED: TAMSULOSIN 0.4 MG CAP.SR.24H PO SCH (09:00)
[2017-09-01] MEDS ORDERED: REVLIMID 10 MG PO SCH (09:00)
[2017-09-01 10:51] VITALS: BP_SYST 104; BP_SYST 119; BP_SYST 123; BP_DIAS 47; BP_DIAS 60; BP_DIAS 76
[2017-09-01] MEDS ORDERED: MIDO2.5T PO (11:01)
[2017-09-02 09:08] LABS: IMMUNOGLOBULIN A, SERUM 34 mg/dL (61-437); IMMUNOGLOBULIN G, SERUM 522 mg/dL (700-1600); IMMUNOGLOBULIN M, SERUM 28 mg/dL (15-143)
[2017-09-03 08:07] LABS: *SPE A/G RATIO 1.4 (0.7-1.7); *SPE ALBUMIN 2.9 g/dL (2.9-4.4); *SPE ALPHA-1-GLOBULIN 0.3 g/dL (0.0-0.4); *SPE ALPHA-2-GLOBULIN 0.7 g/dL (0.4-1.0); *SPE BETA GLOBULIN 0.6 g/dL (0.7-1.3); *SPE GLOBULIN, TOTAL 2.1 g/dL (2.2-3.9); *SPE M-SPIKE Not Observed g/dL (Not Observed); *SPEGAMMA GLOBULIN 0.5 g/dL (0.4-1.8)
[2017-09-04] MEDS ORDERED: NINLARO PO SCH (09:00)
[2017-09-04] MEDS ORDERED: DEXAMETHASONE 4 MG TABLET PO SCH (11:30)
== END 2017-09-01 12:30 | DRG 840 ==
LOC: ER 09:48 → TELE 11:16
PROVIDERS: ADMIT Nurse Practitioner Acute Care; ATTEND Nurse Practitioner Acute Care
DX: C90.00 Multiple myeloma not having achieved remission (principal); G93.40 Encephalopathy, unspecified; E44.0 Moderate protein-calorie malnutrition; G90.8 Other disorders of autonomic nervous system; E78.5 Hyperlipidemia, unspecified; I25.10 Atherosclerotic heart disease of native coronary artery without angina pectoris; I95.1 Orthostatic hypotension; E86.0 Dehydration; T50.995A Adverse effect of other drugs, medicaments and biological substances, initial encounter; T44.6X5A Adverse effect of alpha-adrenoreceptor antagonists, initial encounter; Y92.89 Other specified places as the place of occurrence of the external cause; Z68.22 Body mass index [BMI] 22.0-22.9, adult; N40.0 Benign prostatic hyperplasia without lower urinary tract symptoms; F45.8 Other somatoform disorders; F03.90 Unspecified dementia, unspecified severity, without behavioral disturbance, psychotic disturbance, mood disturbance, and anxiety
CPT/HCPCS: 36415; 70450-TC; 71045-TC; 80048-TC; 80061-TC; 80076-TC; 82232; 82728-TC; 82746; 82784; 83540-TC; 83735-TC; 84100-TC; 84155; 84165; 84443-TC; 84484-TC; 85025-TC; 85730-TC; 86334; 87081-TC; A4606; J7030; Z7610